=== PATIENT | female | born 1970 | race African-American/Black ===

== ENCOUNTER → 2017-03-09 | Outpatient (CLI) | payer BC | LOC: FIMAGING 12:39 | DX: Z12.31 Encounter for screening mammogram for malignant neoplasm of breast (principal); Z80.3 Family history of malignant neoplasm of breast | CPT/HCPCS: G0202 ==

== ENCOUNTER 2017-07-17 13:52 | Emergency (ER) | payer BC ==
[2017-07-17 13:58] VITALS: PULSE 108; RESP 18; O2SAT 96
[2017-07-17] MEDS ORDERED: BUPIVACAINE 0.5% 10 ML SDV MISC ONE (14:15)
--- NOTE | 2017-07-17 15:04 | EDPHY ---
H & P Time Seen by Provider: 07/17/17 14:05 HPI/ROS: CHIEF COMPLAINT: Right thumb injury HISTORY OF PRESENT ILLNESS: 47-year-old female presents to the emergency department with a right thumb injury. The patient was using a mandoline at home and accidentally cut her left thumb. The incident happened just prior to arrival. She is right-hand dominant. Denies injury to the other fingers. She is unsure of her last tetanus shot. She states that she was having difficulty controlling the bleeding with firm direct pressure. ROS: Denies numbness or tingling in her fingers, retained foreign body, injury to the other fingers. Past Medical/Surgical History: Negative Social History: and lives in [place] Smoking Status: Never smoked Physical Exam: On examination the patient has a 1 cm x 1.5 cm skin avulsion noted to the right thumb that does extend into the nail bed. There is slow active bleeding noted. She has normal sensation to light touch with normal 2 point discrimination. No palpable bony tenderness. She has full range of motion of her left thumb. The other fingers do not appear injured. Constitutional: Initial Vital Signs Temperature (C) 36.9 C 07/17/17 13:55 Heart Rate 108 H 07/17/17 13:55 Respiratory Rate 18 07/17/17 13:55 Blood Pressure 128/79 H 07/17/17 13:55 O2 Sat (%) 96 07/17/17 13:55 O2 Delivery Mode Room Air Allergies/Adverse Reactions: No Known Allergies Allergy (Unverified 07/17/17 13:58) Home Medications: Medication Instructions Recorded NK [No Known Home Meds] 07/17/17 MDM/Departure - MDM Procedures: After consent was obtained from the patient, digital block was performed using 1 % lidocaine without epinephrine 0.5% bupivacaine without epinephrine. After adequate anesthesia, the wound was thoroughly cleansed and surgical foam and tube gauze dressing applied. Patient tolerated this quite well. No active bleeding upon discharge. Medications Given: Discontinued Medications Bupivacaine HCl (Sensorcaine 0.5% Vial) 0 ml [facility] [place] EDNOW ONE Stop: 07/17/17 14:16 Last Admin: 07/17/17 14:18 Dose: Not Given Diphtheria/Tetanus/Acell Pertussis (Boostrix) 0.5 ml IM .ONCE ONE Stop: 07/17/17 15:11 Last Admin: 07/17/17 15:18 Dose: 0.5 ml ED Course/Re-evaluation: Patient's tetanus shot was updated. Sutures were not indicated and this was explained to the patient. She has a skin avulsion which was treated with surgical foam and tube gauze. She did require digital block because it was too painful for her to clean the wound without the anesthetic. - Depart Disposition: Home, Routine, Self-Care Clinical Impression: Avulsion of skin of left thumb Qualifiers: Encounter type: initial encounter Qualified Code(s): S61.002A - Unspecified open wound of left thumb without damage to nail, initial encounter Condition: Good Instructions: Skin Avulsion (ED), Acute Wounds (ED) Additional Instructions: Ibuprofen 600 mg every 8 hr as needed for pain. Return to the emergency department if you have any signs or symptoms of infection such as redness, swelling, increased pain, fever, purulent drainage. Referrals: NONE *PRIMARY CARE P,. [Primary Care Provider] - As per Instructions
[2017-07-17] MEDS ORDERED: TDAP ADULT 0.5 ML INJ (BOOSTRIX) IM ONE (15:10)
[2017-07-17 15:29] VITALS: BP 126/72; TEMP 98.2
== END 2017-07-17 15:33 | disposition home or self-care (01) ==
PROC: 3E0T3BZ Introduction of Anesthetic Agent into Peripheral Nerves and Plexi, Percutaneous Approach (ICD-10-PCS; principal; 2017-07-17)
DX: S61.002A Unspecified open wound of left thumb without damage to nail, initial encounter (principal); Z23 Encounter for immunization; W45.8XXA Other foreign body or object entering through skin, initial encounter

== ENCOUNTER → 2018-03-10 | Outpatient (CLI) | payer BC | LOC: FIMAGING 09:49 | DX: Z12.31 Encounter for screening mammogram for malignant neoplasm of breast (principal) ==